=== PATIENT | female | born 1980 | race Caucasian/White ===

== ENCOUNTER → 2021-06-26 | Outpatient (CLI) | payer OTHER ==
[~2021-06-26] MED LIST: ACET-685 PO; ACET-687 PO; ALPR2TAB2 PO; BUTA1CAP30 PO; BUTA1CAP61 PO; DIAZ5TAB PO; DIVA500T2 PO; DOCU100C28 PO; FERR325T15 PO; FLUO40CA2 PO; FLUO40CA9 PO; METO10TA PO; NO HOME MEDS; PROC10TA2 PO; PROM25TA10 PO; SENN8.6T22 PO; TRAZ-163 PO; VENL150C PO; ZOLP10TA5 PO
[2021-06-26 17:02] LABS: EOSINOPHIL % 1.5 % (0.0-5.0); LYMPHOCYTES # 1.35 10^3/uL1 (1.0-4.8); LYMPHOCYTES % 66.5 % (24.0-44.0); MEAN CORP HGB 27.3 pg (26-34); MONOCYTES # 0.4 10^3/uL (0.3-0.8); MONOCYTES % 17.7 % (5.0-12.0); NEUTROPHIL # 0.3 10^3/uL (1.8-7.7); NEUTROPHILS % 13.3 % (41.0-85.0); PLATELET COUNT 240 10^3/uL (150-400); RED CELL DISTRIBUTION WIDTH 14.4 % (11.5-14.5)
[2021-06-26 17:31] LABS: CALCIUM 9.2 mg/dL (8.4-10.5); CARBON DIOXIDE 29.8 mmol/L (20.0-32)
[2021-06-28 06:18] LABS: HEP A AB, IgM Negative (Negative)
== END | disposition home or self-care (01) ==
LOC: LAB 16:36
PROVIDERS: ATTEND Internal Medicine
DX: M19.90 Unspecified osteoarthritis, unspecified site (principal); R20.8 Other disturbances of skin sensation; I73.00 Raynaud's syndrome without gangrene; G40.909 Epilepsy, unspecified, not intractable, without status epilepticus; D72.819 Decreased white blood cell count, unspecified; Z79.899 Other long term (current) drug therapy; M54.2 Cervicalgia
CPT/HCPCS: 36415; 80053; 80061; 80307; 82306; 82607; 82746; 83036; 84425; 84439; 84443; 85025; 85651; 86431

== ENCOUNTER 2021-09-07 22:16 | Emergency (ER) | payer OTHER ==
[~2021-09-07] VITALS: Ht 167.6 cm; Wt 52.4 kg
[2021-09-07 22:43] VITALS: BP 135/96
[2021-09-07 23:11] LABS: EOSINOPHIL % 0.5 % (0.0-5.0); LYMPHOCYTES # 0.88 10^3/uL1 (1.0-4.8); LYMPHOCYTES % 46.1 % (24.0-44.0); MEAN CORP HGB 27.9 pg (26-34); MONOCYTES # 0.6 10^3/uL (0.3-0.8); MONOCYTES % 31.9 % (5.0-12.0); NEUTROPHIL # 0.4 10^3/uL (1.8-7.7); NEUTROPHILS % 20.5 % (41.0-85.0); PLATELET COUNT 429 10^3/uL (150-400); RED CELL DISTRIBUTION WIDTH 15.6 % (11.5-14.5)
[2021-09-07 23:36] LABS: CARBON DIOXIDE 25.1 mmol/L (20.0-32)
--- NOTE | 2021-09-07 23:42 | DIREP ---
PROCEDURE:CHEST 1 VIEW COMPARISON:[facility], CR, XRAY CHEST SINGLE VW, 02/28/2021, 09:26 PM. INDICATIONS:SOB FINDINGS: LUNGS/PLEURA:There is pulmonary hyperinflation consistent with underlying COPD. No focal consolidation. No effusions. VASCULATURE:Mildly increased pulmonary vasculature. CARDIAC:Normal. No cardiac silhouette abnormality or cardiomegaly. MEDIASTINUM:Normal. No visible mass or adenopathy. BONES:Normal. No fracture or visible bony lesion. OTHER:Negative. CONCLUSION:Mild vascular congestion. No acute airspace disease Dictated by: Maynor Garcia DO on 09/07/2021 at 11:40 PM
--- NOTE | 2021-09-07 23:57 | ER.PDOC ---
General Chief Complaint: Requesting Medical Care Stated Complaint: POSS COVID Time seen by MD: 22:50 Source: patient Exam Limitations: no limitations History of Present Illness Initial Comments Cough, congestion shortness of breath for 2 days. Patient was exposed to someone with COVID-19 and she is worried that she has Covid. She also told me that she has been taking methamphetamine. Timing/Duration: gradual Severity: mild Associated Symptoms: runny nose, cough, mild SOB Allergies: Coded Allergies: hydromorphone (Unverified Allergy, Intermediate, HALLUCINATIONS, 06/02/17) ondansetron (Verified Allergy, Mild, 06/02/17) ketorolac (Unverified Allergy, Unknown, HALLUCINATIONS, 06/02/17) tramadol (Verified Adverse Reaction, Intermediate, Nausea, 06/02/17) Home Meds Reported Medications Butalbit/Acetamin/Caff/Codeine (Fioricet-Cod 44-802-19-30 Cap) 1 Each Capsule, 1 EACH PO PRN PRN for HEADACHE, CAPSULE 12/22/16 Acetaminophen With Codeine (TYLENOL WITH CODEINE #4 TABLET) 1 Each Tablet, 1 TAB PO Q4HR PRN for HEADACHE, #120 TAB 05/01/16 Fluoxetine Hcl (PROZAC) 40 Mg Capsule, 80 MG PO DAILY, CAPSULE 11/27/15 Promethazine Hcl (PROMETHAZINE HCL) 25 Mg Tablet, 25 MG PO Q6HR PRN for N/V, TABLET 11/11/14 Constitutional: no symptoms reported EENTM: see HPI Respiratory: see HPI Cardiovascular: no symptoms reported Gastrointestinal: no symptoms reported All Other Systems: Reviewed and Negative Past Medical History Medical History: CVA/TIA/stroke, coronary artery disease, COPD, hypertension, renal disease, other Surgical History: no surgical history Social History Alcohol Use: occassionally Drug Use: Meth Physical Exam General Appearance: alert, no distress Eye: eyes nml inspection Nose: nose nml Throat: pharynx nml, airway nml Neck: nml inspection, supple Respiratory: no resp.distress, breath sounds nml Abdomen: non-tender, no organomegaly CVS: reg rate & rhythm, heart sounds nml Skin: color nml, no rash, warm/dry Extremities: non-tender, nml ROM, no pedal edema NEURO/PSYCH: oriented x 3, CN's nml as tested, motor nml, sensation nml, mood/affect nml Results/Orders Results/Orders Orders - REESE SORIA MD Cbc With Auto Diff (09/07/21 22:51) Probnp B-Type Carpet Sewing Machine Operator (09/07/21 22:51) D-Dimer (09/07/21 22:51) Ekg-Routine (09/07/21 22:51) Troponin I High Sensitivity (09/07/21 22:51) Basic Metabolic Panel (09/07/21 22:51) Covid19 Antigen Yesica Jenni (09/07/21 22:51) Xr Chest 1v (09/07/21 22:51) Vital Signs Date Time Temp Pulse Resp B/P (MAP) Pulse Ox O2 Delivery O2 Flow Rate FiO2 09/07/21 22:43 98.7 129 32 09/07/21 22:43 98.7 129 32 97 09/07/21 22:43 98.7 129 32 97 Laboratory Tests Test 09/07/21 23:08 09/07/21 23:11 White Blood Count 1.9 10^3/uL (4.5-11.0) *L Red Blood Count 4.08 10^6/uL (4.00-5.20) Hemoglobin 11.4 g/dL (12.0-15.0) L Hematocrit 34.9 % (36.0-46.0) L Mean Corpuscular Volume 85.5 fL (78-100) Mean Corpuscular Hemoglobin 27.9 pg (26-34) Mean Corpuscular Hemoglobin Concent 32.7 g/dL (33-36.5) L Red Cell Distribution Width 15.6 % (11.5-14.5) H Platelet Count 429 10^3/uL (150-400) H Mean Platelet Volume 9.2 fL (7.8-11.0) Neutrophils (%) (Auto) 20.5 % (41.0-85.0) L Lymphocytes (%) (Auto) 46.1 % (24.0-44.0) H Monocytes (%) (Auto) 31.9 % (5.0-12.0) H Neutrophils # (Auto) 0.4 10^3/uL (1.8-7.7) L Lymphocytes # (Auto) 0.88 10^3/uL1 (1.0-4.8) L Monocytes # (Auto) 0.6 10^3/uL (0.3-0.8) Absolute Immature Granulocyte (auto 0 10^3 u/L (0-2) Absolute Eosinophils (auto) 0.0 10^3/uL (0.0-0.2) Immature Granulocytes % 0.00 % (0.00-0.50) Eosinophils % 0.5 % (0.0-5.0) Basophils % 1.0 % (0.0-0.2) H Basophils # 0.0 10^3/uL (0.0-0.1) D-Dimer 0.41 mg/L (0.19-0.49) Sodium Level 136 mmol/L (132-145) Potassium Level 3.3 mmol/L (3.6-5.2) L Chloride Level 104.0 mmol/L (96-109) Carbon Dioxide Level 25.1 mmol/L (20.0-32) Glucose Level 101 mg/dL (70-110) Blood Urea Nitrogen 13 mg/dL (7-18) Creatinine 0.85 mg/dL (0.59-1.40) Calcium Level 8.9 mg/dL (8.4-10.5) Anion Gap 10.2 Estimated GFR () 89.6 (>/=60) Est GFR (CKD-EPI)(Non-Afr Italian) 74.1 (>/=60) BUN/Creatinine Ratio 15.0 Troponin I High Sensitivity 34 ng/L (0-50) Pro-B-Type Natriuretic Peptide 440 pg/mL (0-125) H SARS-CoV-2 Antigen (Rapid) NEGATIVE (NEGATIVE) Progress Progress CXR: Mild vascular congestion. No acute airspace disease COVID-19 is negative. D-dimer is 0.41. BNP is 440. Chemistry show a potassium of 3.3 and rest of basic chemistry is normal. WBC is 1.9 and this is chronic. She sees a [employer] systems administrator for it. COVID-19 is negative. Patient is stable and she is ready to go home. EKG/XRAY/CT/US EKG: NSR EKG Comments: HR 100, LVH XRAY: chest ER DEPART Departure Time of Disposition: 23:56 Disposition: 01 HOME / SELF CARE / HOMELESS Impression: Primary Impression: Acute respiratory infection Condition: Stable Referrals: JETT VEGA (PCP) PRIMARY CARE PROVIDER Additional Instructions: Mucinex DM [id number] as directed Follow-up with your PCP in 1 week Return to ED if worsening symptoms or concerns Duration or Time Spent with Pa: 30 min REESE SORIA MD Sep 07, 2021 23:57
[2021-09-08 00:02] VITALS: BP 122/72
--- NOTE | 2021-09-08 01:29 | PCM.EKG ---
[facility] Test Date: 2021-09-07 Test Time: 23:50:45 Pat Name: LAURA MCCRAY Department: Room: Gender: F Lidar Technician: PAULO : 1980 Requested By: REESE SORIA Order Number: [id number] Reading MD: Reese SORIA Measurements Intervals [place] Rate: 100 P: 30 TN: 124 QRS: 50 QRSD: 87 T: -4 QT: 359 QTc: 463 Interpretive Statements Sinus tachycardia Consider left ventricular hypertrophy Compared to ECG 02/28/2021 21:38:01 Sinus bradycardia no longer present Electronically Signed On 09-10-2021 20:11:29 MORTGAGE LOAN PROCESSING CLERK by Reese SORIA Please click the below link to view image of tracing.
[2021-09-08 02:10] LABS: BAND NEUTROPHILS 2 % (2-6); SEGMENTED NEUTROPHILS 22 % (31-76)
[2021-09-08 02:11] LABS: LYMPHOCYTE 57 % (25-36); MONOCYTE 19 % (3-9)
== END 2021-09-08 00:02 | disposition home or self-care (01) ==
LOC: EDBD 22:16 → EDUNIT# 22:16 → ER 22:16
DX: J06.9 Acute upper respiratory infection, unspecified (principal); I10 Essential (primary) hypertension; I25.10 Atherosclerotic heart disease of native coronary artery without angina pectoris; J44.9 Chronic obstructive pulmonary disease, unspecified; Z20.822 Contact with and (suspected) exposure to COVID-19; Z79.899 Other long term (current) drug therapy; Z86.73 Personal history of transient ischemic attack (TIA), and cerebral infarction without residual deficits; Z88.5 Allergy status to narcotic agent; Z88.8 Allergy status to other drugs, medicaments and biological substances
CPT/HCPCS: 36415; 71045; 80048; 83880; 84484; 85025; 85379; 87426; 93005; 99285

== ENCOUNTER 2021-09-28 13:52 | Emergency (ER) | payer OTHER ==
[~2021-09-28] VITALS: Ht 170.2 cm; Wt 56.7 kg
--- NOTE | 2021-09-28 18:38 | NUR ---
Called pt for triage, they have left the hospital. Notified to notify admission if they come back.
--- NOTE | 2021-09-28 19:32 | NUR ---
Called pt a second time, no answer.
[2021-09-28 20:05] VITALS: BP 132/88
[2021-09-28 20:07] LABS: BASOPHIL # 0.1 10^3/uL (0.0-0.1); BASOPHIL % 2.4 % (0.0-0.2); EOSINOPHIL # 0.3 10^3/uL (0.0-0.2); EOSINOPHIL % 9.1 % (0.0-5.0); LYMPHOCYTES # 1.64 10^3/uL1 (1.0-4.8); LYMPHOCYTES % 55.2 % (24.0-44.0); MEAN CORP HGB 27.9 pg (26-34); MONOCYTES # 0.6 10^3/uL (0.3-0.8); MONOCYTES % 21.2 % (5.0-12.0); NEUTROPHIL # 0.4 10^3/uL (1.8-7.7); NEUTROPHILS % 12.1 % (41.0-85.0); PLATELET COUNT 409 10^3/uL (150-400); RED CELL DISTRIBUTION WIDTH 15.3 % (11.5-14.5)
[2021-09-28 20:20] LABS: CARBON DIOXIDE 26.7 mmol/L (20.0-32)
[2021-09-28] MEDS ORDERED: ZOFRAN ODT SL STA (20:22)
[2021-09-28] MEDS ORDERED: NORCO 7.5MG PO STA (20:26)
--- NOTE | 2021-09-28 20:52 | ER.PDOC ---
General Chief Complaint: Skin Rash/Abscess Stated Complaint: LT SIDE ABCESS UNDERARM/WEAKNESS Time seen by MD: 19:11 Source: patient Exam Limitations: no limitations History of Present Illness Initial Comments pt has a history of breast abscess and is here today with a possible abscess that has been draining for 4 days. She said this has happened before in the past and clindamycin has helped Timing/Duration: 1 week Severity: moderate Location: (L) axillary Quality: painful Identified Cause: no When: been going on for 4 days Where: left breast Allergies: Coded Allergies: hydromorphone (Unverified Allergy, Intermediate, HALLUCINATIONS, 06/02/17) ondansetron (Verified Allergy, Mild, 06/02/17) ketorolac (Unverified Allergy, Unknown, HALLUCINATIONS, 06/02/17) tramadol (Verified Adverse Reaction, Intermediate, Nausea, 06/02/17) Home Meds Reported Medications Butalbit/Acetamin/Caff/Codeine (Fioricet-Cod 07-269-48-30 Cap) 1 Each Capsule, 1 EACH PO PRN PRN for HEADACHE, CAPSULE 12/22/16 Acetaminophen With Codeine (TYLENOL WITH CODEINE #4 TABLET) 1 Each Tablet, 1 TAB PO Q4HR PRN for HEADACHE, #120 TAB 05/01/16 Fluoxetine Hcl (PROZAC) 40 Mg Capsule, 80 MG PO DAILY, CAPSULE 11/27/15 Promethazine Hcl (PROMETHAZINE HCL) 25 Mg Tablet, 25 MG PO Q6HR PRN for N/V, TABLET 11/11/14 Past Medical History Medical History: renal disease Surgical History: tubal Social History Alcohol Use: none Drug Use: none Reviewed Nursing Reviewed: Vital Signs, Abn. Noted, Nursing Assessment Constitutional: no symptoms reported EENTM: no symptoms reported Respiratory: no symptoms reported Cardiovascular: no symptoms reported Gastrointestinal: no symptoms reported Genitourinary: no symptoms reported Musculoskeletal: no symptoms reported Skin: no symptoms reported Psychiatric/Neurological: no symptoms reported Hematologic/Lymphatic: no symptoms reported Physical Exam General Appearance: alert Skin: warm/dry, abscess, other (left breast slightly erythematous at the 3' clock angle and draining) Location: other (breast) With: tenderness Extremities: non-tender EENT: eyes nml inspection Neck: trachea midline Respiratory: no resp. distress CVS: reg. rate & rhythm NEURO/PSYCH: oriented x 3 Comments insole coverer Benito Salcido Results/Orders Results/Orders Orders - EBONY CORTEZ MD Cbc With Auto Diff (09/28/21 19:48) C-Reactive Protein (09/28/21 19:48) Erythrocyte Sedimentation Rate (09/28/21 19:48) Procalcitonin (09/28/21 19:48) Basic Metabolic Panel (09/28/21 19:48) Covid19 Antigen Yesica Jenni (09/28/21 20:22) Ondansetron (Zofran Odt) (09/28/21 20:22) Influenza A&B (09/28/21 20:23) Hydrocodone/Acetaminophen ([place] 7.5mg) (09/28/21 20:26) Promethazine Hcl (Phenergan) (09/28/21 21:05) Hydrocodone/Acetaminophen ([place] 7.5mg) (09/28/21 21:05) Promethazine Hcl (Phenergan) (09/28/21 21:07) Vital Signs Date Time Temp Pulse Resp B/P (MAP) Pulse Ox O2 Delivery O2 Flow Rate FiO2 09/28/21 20:05 98.4 109 16 09/28/21 20:05 98.4 109 16 97 09/28/21 20:05 98.4 109 16 132/88 (103) 97 Room Air Administered Medications Medications (Trade) Dose Ordered Sig/Asad Route PRN Reason Start Time Stop Time Status Last Admin Dose Admin Acetaminophen/ Hydrocodone Bitart (Bright[place] 7.5mg) 1 each OT STAT PO 09/28/21 20:26 09/28/21 20:27 DC 09/28/21 21:06 1 EACH Laboratory Tests Test 09/28/21 20:01 09/28/21 20:23 White Blood Count 3.0 10^3/uL (4.5-11.0) L Red Blood Count 4.23 10^6/uL (4.00-5.20) Hemoglobin 11.8 g/dL (12.0-15.0) L Hematocrit 36.4 % (36.0-46.0) Mean Corpuscular Volume 86.1 fL (78-100) Mean Corpuscular Hemoglobin 27.9 pg (26-34) Mean Corpuscular Hemoglobin Concent 32.4 g/dL (33-36.5) L Red Cell Distribution Width 15.3 % (11.5-14.5) H Platelet Count 409 10^3/uL (150-400) H Mean Platelet Volume 9.0 fL (7.8-11.0) Neutrophils (%) (Auto) 12.1 % (41.0-85.0) L Lymphocytes (%) (Auto) 55.2 % (24.0-44.0) H Monocytes (%) (Auto) 21.2 % (5.0-12.0) H Neutrophils # (Auto) 0.4 10^3/uL (1.8-7.7) L Lymphocytes # (Auto) 1.64 10^3/uL1 (1.0-4.8) Monocytes # (Auto) 0.6 10^3/uL (0.3-0.8) Absolute Immature Granulocyte (auto 0 10^3 u/L (0-2) Absolute Eosinophils (auto) 0.3 10^3/uL (0.0-0.2) H Immature Granulocytes % 0.00 % (0.00-0.50) Eosinophils % 9.1 % (0.0-5.0) H Basophils % 2.4 % (0.0-0.2) H Basophils # 0.1 10^3/uL (0.0-0.1) Erythrocyte Sedimentation Rate 12 mm/hr (0-20) Sodium Level 140 mmol/L (132-145) Potassium Level 3.4 mmol/L (3.6-5.2) L Chloride Level 104.0 mmol/L (96-109) Carbon Dioxide Level 26.7 mmol/L (20.0-32) Glucose Level 73 mg/dL (70-110) Blood Urea Nitrogen 12 mg/dL (7-18) Creatinine 0.85 mg/dL (0.59-1.40) Calcium Level 8.7 mg/dL (8.4-10.5) Anion Gap 12.7 Estimated GFR () 89.6 (>/=60) Est GFR (CKD-EPI)(Non-Afr Latvian) 74.1 (>/=60) BUN/Creatinine Ratio 14.0 C-Reactive Protein 0.19 mg/dL (0.00-5.00) Procalcitonin < 0.05 ng/mL (0.05-0.5) L Influenza Type A Antigen NEGATIVE (NEG) Influenza Type B Antigen NEGATIVE (NEG) SARS-CoV-2 Antigen (Rapid) NEGATIVE (NEGATIVE) ER DEPART Departure Time of Disposition: 21:09 Disposition: 01 HOME / SELF CARE / HOMELESS Impression: Primary Impression: Breast abscess of female Condition: Stable Patient Instructions: Abscess, Care After, Abscess, Acre-it-[id number] Referrals: JETT VEGA (PCP) PRIMARY CARE PROVIDER Duration or Time Spent with Pa: 19 EBONY CORTEZ MD Sep 28, 2021 20:52
--- NOTE | 2021-09-28 21:04 | NUR ---
COVID RESULTS NEGATIVE, EDP NOTIFIED
[2021-09-28] MEDS ORDERED: PHENERGAN ONE (21:05)
[2021-09-28] MEDS ORDERED: NORCO 7.5MG PO ONE (21:05)
[2021-09-28] MEDS ORDERED: PHENERGAN PO STA (21:07)
[2021-09-28 23:28] LABS: EOSINOPHIL 12 % (1-4); LYMPHOCYTE 66 % (25-36); MONOCYTE 8 % (3-9); SEGMENTED NEUTROPHILS 14 % (31-76)
== END 2021-09-28 21:18 | disposition home or self-care (01) ==
LOC: ER 13:52
DX: N61.1 Abscess of the breast and nipple (principal); Z20.822 Contact with and (suspected) exposure to COVID-19; Z79.899 Other long term (current) drug therapy; Z88.5 Allergy status to narcotic agent; Z88.8 Allergy status to other drugs, medicaments and biological substances
CPT/HCPCS: 36415; 80048; 84145; 85025; 85651; 86140; 87426; 87804; 99283

== ENCOUNTER 2021-10-26 23:23 | Emergency (ER) | payer BC, OTHER | END 2021-10-27 00:20 | disposition left against medical advice (07) | LOC: ER 23:23 | DX: R51.9 Headache, unspecified (principal); Z53.21 Procedure and treatment not carried out due to patient leaving prior to being seen by health care provider ==

== ENCOUNTER 2021-12-06 14:37 | Emergency (ER) | payer BC, OTHER ==
[~2021-12-06] VITALS: Ht 165.1 cm; Wt 40.8 kg
[~2021-12-06 14:37] MED LIST changes: -VENL150C PO; +VENL150C3 PO
[2021-12-06] MEDS ORDERED: ATIVAN ONE (14:42)
[2021-12-06] MEDS ORDERED: ATIVAN IV STA (14:46)
[2021-12-06 15:08] VITALS: BP_SYST 119; BP_SYST 128; BP_DIAS 82; BP_DIAS 92
[2021-12-06 15:12] LABS: BASOPHIL % 0.6 % (0.0-0.2); EOSINOPHIL % 0.2 % (0.0-5.0); LYMPHOCYTES # 0.93 10^3/uL1 (1.0-4.8); LYMPHOCYTES % 15.1 % (24.0-44.0); MEAN CORP HGB 27.9 pg (26-34); MONOCYTES # 0.5 10^3/uL (0.3-0.8); MONOCYTES % 8.6 % (5.0-12.0); NEUTROPHIL # 4.6 10^3/uL (1.8-7.7); NEUTROPHILS % 75.2 % (41.0-85.0); PLATELET COUNT 342 10^3/uL (150-400); RED CELL DISTRIBUTION WIDTH 14.4 % (11.5-14.5)
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
[2021-12-06 15:36] LABS: CARBON DIOXIDE 20.2 mmol/L (20.0-32); GLUCOSE 185 mg/dL (70-110)
--- NOTE | 2021-12-06 16:15 | NUR ---
Remains alert and cooopertive. 1:1 status. Oral temp 97.5
--- NOTE | 2021-12-06 16:36 | NUR ---
Handoff to Michelle Salcido LVN
[2021-12-06] MEDS ORDERED: NS 1000ML 1,000 ML IV ONE ×2 (17:00)
--- NOTE | 2021-12-06 17:20 | PCM.EKG ---
[facility] Test Date: 2021-12-06 Test Time: 17:17:57 Pat Name: LAURA MCCRAY Department: Room: Gender: F Customer Management Specialist: BLAKE : 1980 Requested By: CRISTO BURLESON Order Number: [id number] Reading MD: Measurements Intervals [place] Rate: 126 P: 69 IN: 132 QRS: 48 QRSD: 85 T: 13 QT: 335 QTc: 486 Interpretive Statements Sinus tachycardia Anteroseptal infarct, old Compared to ECG 09/07/2021 23:50:45 Myocardial infarct finding now present Please click the below link to view image of tracing.
--- NOTE | 2021-12-06 17:21 | DIREP ---
PROCEDURE:CHEST 1 VIEW COMPARISON:[facility], CR, XRAY CHEST SINGLE VW, 09/07/2021, 11:15 PM. INDICATIONS:upper back pain after fall FINDINGS: LUNGS/PLEURA:Senescent changes or underlying chronic lung disease is fairly similar to the previous study. No confluent airspace consolidation, pleural effusion or pneumothorax is identified. VASCULATURE:Normal. Unremarkable pulmonary vasculature. CARDIAC:Normal. No cardiac silhouette abnormality or cardiomegaly. MEDIASTINUM:Normal. No visible mass or adenopathy. BONES:Dextro convex curvature of the thoracic spine with associated degenerative changes. OTHER:Negative. CONCLUSION: 1. Senescent changes versus potential underlying chronic lung disease. No acute cardiopulmonary abnormality. 2. 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 Dictated by: Seb Schilling M.D. On 12/06/2021 at 05:19 PM
[2021-12-06] MEDS ORDERED: TYLENOL PO STA (17:34)
--- NOTE | 2021-12-06 17:34 | NUR ---
STATUS PHYSICIAN AT BEDSIDE, PT ALERT AND ORIENTED X3, NO S/S OF DISTRESS NOTED. PT DENIES SUICIDAL IDEATIONS AND DENIES ANY INTENT ON HARMING HERSELF TODAY OR IN THE PAST MONTH. PT STATES, "I WANT TO GO TO REHAB I HAVE TO GO TO REHAB." PHYSICIAN STATES, "YOU HAVE ALREADY EATEN AND TALKED, YOU HAVE TO WALK AND THEN I WILL DISCHARGE YOU." PT GETTING DRESSED AT THIS TIME. PT GIVEN WRITTEN RESOURCES ON REHAB FACILITY.
[2021-12-06] MEDS ORDERED: TYLENOL PO ONE (17:36)
--- NOTE | 2021-12-06 17:46 | NUR ---
TEMP ORAL TEMP 98.3, NO S/S OF DISTRESS NOTED.
[2021-12-06 18:37] LABS: BILIRUBIN,URINE 1+ (NEGATIVE); UROBILINOGEN,URINE 0.2 E.U./dL (0.2)
[2021-12-06] MEDS ORDERED: ROCEPHIN 1,000 MG in NS 100ML 100 ML IV STA (18:56)
[2021-12-06 19:00] VITALS: BP 128/72
[2021-12-06] MEDS ORDERED: ROCEPHIN ONE (19:06)
[2021-12-06] MEDS ORDERED: NS 100ML 100 ML IV ONE (19:06)
== END 2021-12-06 19:07 | disposition home or self-care (01) ==
LOC: ER 14:37
DX: S01.01XA Laceration without foreign body of scalp, initial encounter (principal); N39.0 Urinary tract infection, site not specified; F15.20 Other stimulant dependence, uncomplicated; Z88.5 Allergy status to narcotic agent; Z79.899 Other long term (current) drug therapy; Z88.8 Allergy status to other drugs, medicaments and biological substances; X58.XXXA Exposure to other specified factors, initial encounter; Y93.02 Activity, running; Y92.488 Other paved roadways as the place of occurrence of the external cause; Y99.8 Other external cause status
CPT/HCPCS: 36415; 71045; 80053; 80061; 80299 ×2; 80307; 80324; 81001; 82077; 82140; 83036; 84443; 84484; 84703; 85025; 86592; 87086; 93005; 96361; 96374; 99285; A9150; G0480; J0696; J2060

== ENCOUNTER 2021-12-07 19:38 | Emergency (ER) | payer OTHER ==
[~2021-12-07] VITALS: Ht 170.2 cm; Wt 61.2 kg
[2021-12-07 19:48] VITALS: BP 120/41
[2021-12-07] MEDS ORDERED: TYLENOL #3 PO STA (19:54)
[2021-12-07] MEDS ORDERED: TYLENOL #3 PO ONE (19:57)
--- NOTE | 2021-12-07 20:05 | ER.PDOC ---
General Chief Complaint: Neck/Upper back Pain Stated Complaint: NECK/LEFT HAND PAIN Time seen by MD: 20:02 Source: patient Exam Limitations: no limitations History of Present Illness Initial Comments Neck and left hand pain since yesterday. Patient was seen here yesterday for methamphetamine abuse. She does not remember injury. No numbness, tingling or w eakness of upper extremities. Timing/Duration: yesterday Severity/Quality: moderate Associated Symptoms: denies symptoms Allergies: Coded Allergies: hydromorphone (Unverified Allergy, Intermediate, HALLUCINATIONS, 06/02/17) ondansetron (Verified Allergy, Mild, 06/02/17) ketorolac (Unverified Allergy, Unknown, HALLUCINATIONS, 06/02/17) tramadol (Verified Adverse Reaction, Intermediate, Nausea, 06/02/17) Home Meds Reported Medications Butalbit/Acetamin/Caff/Codeine (Fioricet-Cod 18-183-08-30 Cap) 1 Each Capsule, 1 EACH PO PRN PRN for HEADACHE, CAPSULE 12/22/16 Acetaminophen With Codeine (TYLENOL WITH CODEINE #4 TABLET) 1 Each Tablet, 1 TAB PO Q4HR PRN for HEADACHE, #120 TAB 05/01/16 Fluoxetine Hcl (PROZAC) 40 Mg Capsule, 80 MG PO DAILY, CAPSULE 11/27/15 Promethazine Hcl (PROMETHAZINE HCL) 25 Mg Tablet, 25 MG PO Q6HR PRN for N/V, TABLET 11/11/14 Past Medical History Medical History: renal disease, other (Lupus, Seizures) Surgical History: tubal Family History Significant Family History: no pertinent family hx Social History Alcohol Use: none Drug Use: Meth Review of Systems Constitutional: no symptoms reported EENTM: no symptoms reported Respiratory: no symptoms reported Cardiovascular: no symptoms reported Musculoskeletal: see HPI All Other Systems: Reviewed and Negative Physical Exam General Appearance: No Apparent Distress, WD/WN HEENT: PERRL/EOMI, Normal ENT Inspection, TMs Normal, Pharynx Normal Neck: Tenderness Cardiovascular/Respiratory: Regular Rate, Rhythm, No M/R/G, Normal Peripheral Pulses, No JVD, Normal Breath Sounds, No Respiratory Distress Gastrointestinal: Normal Bowel Sounds, No Organomegaly, No Pulsatile Mass, Non Tender, Soft Back: Normal Inspection, No CVA Tenderness, No Vertebral Tenderness Extremities: Tenderness (Left hand with ecchymosis on the posterior aspect.) Neuro/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: 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, 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, mood/effect nml, No Motor/Sensory Deficits, Relexes nml Skin: Normal Color, Warm/Dry Results/Orders Results/Orders Orders - REESE SORIA MD Ct Cervical Spine (12/07/21 20:01) Acetaminophen With Codeine (Tylenol #3) (12/07/21 19:54) Acetaminophen With Codeine (Tylenol #3) (12/07/21 19:57) Xr Hand Lt (12/07/21 20:01) Ct Chest W Iv Contrast (12/07/21 21:50) Cbc W/O Diff (12/07/21 21:50) Basic Metabolic Panel (12/07/21 21:50) 0.9 % Sodium Chloride (Ns 1000ml) (12/07/21 21:50) Covid19 Antigen Yesica Jenni (12/07/21 21:54) 0.9 % Sodium Chloride (Ns 1000ml) (12/07/21 22:07) Morphine Sulfate (Morphine Sulfate) (12/07/21 22:13) Ondansetron Hcl/Pf (Zofran) (12/07/21 22:14) Ondansetron Hcl/Pf (Zofran) (12/07/21 22:16) Morphine Sulfate (Morphine Sulfate) (12/07/21 22:33) Morphine Sulfate (Morphine Sulfate) (12/07/21 22:36) Morphine Sulfate (Morphine Sulfate) (12/07/21 22:40) Vital Signs Date Time Temp Pulse Resp B/P (MAP) Pulse Ox O2 Delivery O2 Flow Rate FiO2 12/08/21 00:50 98.6 58 16 112/66 (81) 99 Room Air 12/07/21 23:50 98.6 56 16 107/69 (82) 99 Room Air 12/07/21 22:50 98.6 52 16 96/56 (69) 98 Room Air 12/07/21 21:50 98.6 114 16 107/72 (84) 99 Room Air 12/07/21 20:50 98.6 65 16 131/83 (99) 100 Room Air 12/07/21 19:48 98.6 114 16 12/07/21 19:48 98.6 114 16 100 12/07/21 19:48 98.6 114 16 120/41 (67) 100 Room Air Administered Medications Medications (Trade) Dose Ordered Sig/Asad Route PRN Reason Start Time Stop Time Status Last Admin Dose Admin Acetaminophen/ Codeine Phosphate (Tylenol #3) 1 each STAT STAT PO 12/07/21 19:54 12/07/21 19:56 DC 12/07/21 20:00 1 EACH Morphine Sulfate (Morphine Sulfate) 4 mg STAT STAT IV 12/07/21 22:13 12/07/21 22:14 DC 12/07/21 22:42 4 MG Ondansetron HCl (Zofran) 4 mg STAT STAT IV 12/07/21 22:14 12/07/21 22:15 DC 12/07/21 22:36 4 MG Sodium Chloride 1,000 ml @ 1,000 mls/hr Q1H STAT IV 12/07/21 21:50 12/07/21 22:49 DC 12/07/21 22:11 1,000 MLS/HR Laboratory Tests Test 12/07/21 21:51 12/07/21 22:21 12/07/21 22:40 SARS-CoV-2 Antigen (Rapid) NEGATIVE (NEGATIVE) White Blood Count 1.4 10^3/uL (4.5-11.0) *L Red Blood Count 4.03 10^6/uL (4.00-5.20) Hemoglobin 11.4 g/dL (12.0-15.0) L Hematocrit 35.0 % (36.0-46.0) L Mean Corpuscular Volume 86.8 fL (78-100) Mean Corpuscular Hemoglobin 28.3 pg (26-34) Mean Corpuscular Hemoglobin Concent 32.6 g/dL (33-36.5) L Red Cell Distribution Width 14.5 % (11.5-14.5) Platelet Count 284 10^3/uL (150-400) Mean Platelet Volume 9.7 fL (7.8-11.0) Sodium Level 141 mmol/L (132-145) Potassium Level 3.5 mmol/L (3.6-5.2) L Chloride Level 105.0 mmol/L (96-109) Carbon Dioxide Level 22.8 mmol/L (20.0-32) Glucose Level 72 mg/dL (70-110) Blood Urea Nitrogen 15 mg/dL (7-18) Creatinine 0.84 mg/dL (0.59-1.40) Calcium Level 7.6 mg/dL (8.4-10.5) L Anion Gap 16.7 Estimated GFR () 90.9 (>/=60) Est GFR (CKD-EPI)(Non-Afr [place]ian) 75.1 (>/=60) BUN/Creatinine Ratio 17.0 Differential Total Cells Counted 100 #CELLS Segmented Neutrophils 12 % (31-76) L Lymphocytes 70 % (25-36) H Monocytes 18 % (3-9) H Platelet Estimate ADEQUATE Platelet Morphology NORMAL Progress Progress X-rays of left hand shows no acute abnormality. CT cervical spine shows No evidence of fracture. Note is made of pneumome diastinum. CT chest: Small volume of pneumomediastinum surrounding the esophagus and trachea, which tracks cephalad through the thoracic inlet into the lower neck. No mediastinal hematoma. No fluid/edema is seen within the mediastinum adjacent to the trachea or esophagus to suggest esophageal injury. This may be idiopathic or related to forced expiration/Valsalva maneuver. 2. Minimal dependent atelectasis in the posterior lower lobes. The lungs are otherwise clear. No pneumothorax. Spoke with Dr. Ann who recommended patient be transferred to [place]. She received Tylenol #3 and morphine here. ER DEPART Departure Time of Disposition: 01:31 Disposition: 02 SHORT TERM HOSPITAL Impression: Primary Impression: Pneumomediastinum Additional Impressions: Neck pain Hand pain, left Neutropenia Condition: Stable Referrals: LARS WHITTINGTON MD (PCP) PRIMARY CARE PROVIDER Comments Transfer to [facility] ED for Dr. Calero Duration or Time Spent with Pa: 30 min Problem Qualifiers Additional Impressions: Neutropenia Neutropenia type: unspecified Qualified Codes: D70.9 - Neutropenia, unspecified REESE SORIA MD Dec 07, 2021 20:05
--- NOTE | 2021-12-07 20:49 | DIREP ---
PROCEDURE:XRAY HAND MIN 3 VW-LT COMPARISON:None. INDICATIONS:pain/injury FINDINGS:AP, lateral, and oblique view. BONES:Normal. JOINTS:Normal. SOFT TISSUES:Trace dorsal hand soft tissue swelling.. OTHER:No additional findings. CONCLUSION:No acute visible fracture. See above description. Dictated by: Sina Willams MD on 12/07/2021 at 08:47 PM
[2021-12-07 20:50] VITALS: BP 131/83
--- NOTE | 2021-12-07 21:45 | DIREP ---
PROCEDURE: CT SPINE CERVICAL W/O COMPARISON:[facility], CR, XRAY HAND MIN 3 VW-LT, 12/07/2021, 08:09 PM. [facility], CR, XRAY CHEST SINGLE VW, 12/06/2021, 05:04 PM. INDICATIONS:pain FINDINGS: ALIGNMENT:Normal. VERTEBRAE:Normal. PARASPINAL AREA:Normal. OTHER:Pneumomediastinum. Patient is edentulous. CERVICAL DISC LEVELS C2-C3:Normal. C3-C4:Normal. C4-C5:Normal. C5-C6:Normal. C6-C7:Normal. C7-T1:Normal. CONCLUSION: 1. No evidence of fracture. Note is made of pneumomediastinum. 2. This report was called by telephone at 9:40 pm on December 07, 2021 to Abraham Zavala Mba Dictated by: Sina Willams MD on 12/07/2021 at 09:35 PM
[2021-12-07 21:50] VITALS: BP 107/72
[2021-12-07] MEDS ORDERED: NS 1000ML 1,000 ML IV STA (21:50)
[2021-12-07] MEDS ORDERED: NS 1000ML 1,000 ML ONE (22:07)
[2021-12-07] MEDS ORDERED: MORPHINE SULFATE IV STA (22:13)
[2021-12-07] MEDS ORDERED: ZOFRAN IV STA (22:14)
[2021-12-07] MEDS ORDERED: ZOFRAN ONE (22:16)
--- NOTE | 2021-12-07 22:24 | NUR ---
COVID NEGATIVE, EDP NOTIFIED.
[2021-12-07 22:31] LABS: MEAN CORP HGB 28.3 pg (26-34); RED CELL DISTRIBUTION WIDTH 14.5 % (11.5-14.5)
[2021-12-07] MEDS ORDERED: MORPHINE SULFATE ONE ×2 (22:33→22:40)
[2021-12-07] MEDS ORDERED: MORPHINE SULFATE IV ONE (22:36)
[2021-12-07 22:38] LABS: CARBON DIOXIDE 22.8 mmol/L (20.0-32)
[2021-12-07 22:50] VITALS: BP 96/56
[2021-12-07 23:46] LABS: LYMPHOCYTE 70 % (25-36); MONOCYTE 18 % (3-9); SEGMENTED NEUTROPHILS 12 % (31-76)
[2021-12-07 23:50] VITALS: BP 107/69
[2021-12-08 00:50] VITALS: BP 112/66
--- NOTE | 2021-12-08 01:14 | DIREP ---
PROCEDURE:CT CHEST WITH CONTRAST COMPARISON:[facility], CT, CT ABD/PELVIS W/ CONTRAST, 07/04/2017, 10:46 PM. [facility], CR, XRAY CHEST SINGLE VW, 12/06/2021, 05:04 PM. [facility], CR, XRAY HAND MIN 3 VW-LT, 12/07/2021, 08:09 PM. [facility], CT, CT SPINE CERVICAL W/O, 12/07/2021, 08:46 PM. INDICATIONS:Pneumomediastinum on CT C spine TECHNIQUE:Helical CT images of the chest were obtained following the administration of IV contrast material. Axial, sagittal, and coronal images are provided. FINDINGS: LUNGS/PLEURA: Minimal dependent atelectasis in the posterior/inferior aspects of the bilateral lower lobes. The lungs are otherwise clear. No focal consolidation or suspicious pulmonary nodule. No pleural effusion or pneumothorax. MEDIASTINUM/YESSI: Small volume of pneumomediastinum surrounding the esophagus and trachea and tracking cephalad through the thoracic inlet into the lower neck. No fluid or edema is seen within the mediastinum or surrounding the thoracic esophagus. No enlarged mediastinal or hilar lymph nodes. No mediastinal hematoma. CARDIAC: Heart size is normal. No pericardial effusion. No visible coronary artery calcification. THORACIC AORTA: Normal. No significant atherosclerotic plaque. No aneurysm or dissection. CHEST WALL: Unremarkable. No significant chest wall contusion. LIMITED ABDOMEN: 6.2 cm simple cyst in the inferomedial right hepatic lobe. Additional smaller cysts are seen within the right hepatic dome and medial segment of left hepatic lobe. No suspicious hepatic lesion. Otherwise unremarkable. BONES: Normal. No acute abnormality or suspicious osseous lesion. OTHER: Negative. CONCLUSION: 1. Small volume of pneumomediastinum surrounding the esophagus and trachea, which tracks cephalad through the thoracic inlet into the lower neck. No mediastinal hematoma. No fluid/edema is seen within the mediastinum adjacent to the trachea or esophagus to suggest esophageal injury. This may be idiopathic or related to forced expiration/Valsalva maneuver. 2. Minimal dependent atelectasis in the posterior lower lobes. The lungs are otherwise clear. No pneumothorax. 3. Additional findings, as above. Dictated by: Seb Castanon MD on 12/08/2021 at 01:04 AM
[2021-12-08 01:43] VITALS: BP 103/64
== END 2021-12-08 01:45 | disposition short-term general hospital (02) ==
LOC: ER 19:38 → EDBD 19:38 → ER 12-08 01:45
DX: J98.2 Interstitial emphysema (principal); D70.9 Neutropenia, unspecified; M54.2 Cervicalgia; M79.642 Pain in left hand; Z88.5 Allergy status to narcotic agent; Z88.8 Allergy status to other drugs, medicaments and biological substances; N28.9 Disorder of kidney and ureter, unspecified; F15.10 Other stimulant abuse, uncomplicated; Z20.822 Contact with and (suspected) exposure to COVID-19
CPT/HCPCS: 36415; 71260; 72125; 73130; 80048; 85027; 87426; 96361; 96374; 96375; 99285; J2270; J2405; J3490; J7030; Q9965

== ENCOUNTER 2022-03-15 19:49 | Emergency (ER) | payer SELFPAY ==
[~2022-03-15] VITALS: Ht 170.2 cm; Wt 61.2 kg
[2022-03-15 20:03] VITALS: BP 119/79
[2022-03-15] MEDS ORDERED: PHENERGAN IM STA (20:13)
[2022-03-15] MEDS ORDERED: STADOL IM STA (20:13)
--- NOTE | 2022-03-15 20:19 | ER.PDOC ---
General Chief Complaint: Headache Stated Complaint: MIGRANE Time seen by MD: 20:15 Source: patient Exam Limitations: no limitations History of Present Illness Initial Comments Migraine headache for 2 days. She has been seen recurrently in the emergency room for the same complaint. Headache is similar to previous ones and home remedies have not made her to feel better. Severity/Quality: moderate, constant Associated Symptoms: nausea/vomiting, sensitivity to light Allergies: Coded Allergies: hydromorphone (Unverified Allergy, Intermediate, HALLUCINATIONS, 06/02/17) ketorolac (Unverified Allergy, Unknown, HALLUCINATIONS, 06/02/17) tramadol (Verified Adverse Reaction, Intermediate, Nausea, 06/02/17) Home Meds Reported Medications Butalbit/Acetamin/Caff/Codeine (Fioricet-Cod [id number] Cap) 1 Each Capsule, 1 EACH PO PRN PRN for HEADACHE, CAPSULE 12/22/16 Acetaminophen With Codeine (TYLENOL WITH CODEINE #4 TABLET) 1 Each Tablet, 1 TAB PO Q4HR PRN for HEADACHE, #120 TAB 05/01/16 Fluoxetine Hcl (PROZAC) 40 Mg Capsule, 80 MG PO DAILY, CAPSULE 11/27/15 Promethazine Hcl (PROMETHAZINE HCL) 25 Mg Tablet, 25 MG PO Q6HR PRN for N/V, TABLET 11/11/14 Past Medical History Medical History: renal disease, other Surgical History: tubal Social History Alcohol Use: none Drug Use: none Review of Systems Constitutional: no symptoms reported Eyes: see HPI Respiratory: no symptoms reported Cardiovascular: no symptoms reported Gastrointestinal: see HPI All Other Systems: Reviewed and Negative Physical Exam General Appearance: No Apparent Distress, WD/WN Head/Eyes: eyes nml inspection, no facial swelling, no nystagmus, PERRL Neck: nml inspection, Supple Cardiovascular: Normal Peripheral Pulses, Regular Rate, Rhythm, No Edema, No Gallop, No JVD, No Murmur Respiratory: chest non-tender, lungs clear, normal breath sounds, no respiratory distress, no accessory muscle use Gastrointestinal: Normal Bowel Sounds, No Organomegaly, No Pulsatile Mass, Non Tender, Soft Back: Normal Inspection, No CVA Tenderness, No Vertebral Tenderness Extremities: Normal Range of Motion, Non-Tender, Normal Inspection, No Pedal Edema, No Calf Tenderness, Normal Capillary Refill Psychiatric: Alert, Oriented x 3 Cranial Nerves: Normal Hearing, Normal Speech, PERRL Motor/Sensory: No Motor Deficit, No Sensory Deficit, No Pronator Drift, Negative Babinski's Sign Skin: Warm/Dry, Normal Color Lymphatic: No Adenopathy Results/Orders Results/Orders Orders - REESE SORIA MD Butorphanol Tartrate (Stadol) (03/15/22 20:13) Promethazine Hcl (Phenergan) (03/15/22 20:13) Vital Signs Date Time Temp Pulse Resp B/P (MAP) Pulse Ox O2 Delivery O2 Flow Rate FiO2 03/15/22 20:03 97.9 107 16 119/79 (92) 97 Room Air* 0 21 03/15/22 20:03 97.9 107 16 03/15/22 20:03 97.9 107 16 97 Progress Progress Patient received Stadol and Phenergan with improvement in her headache. ER DEPART Departure Time of Disposition: 20:18 Disposition: 01 HOME / SELF CARE / HOMELESS Impression: Primary Impression: Migraine headache Condition: Improved Referrals: PCP,UNKNOWN (PCP) PRIMARY CARE PROVIDER Additional Instructions: Follow-up with your PCP 1 to 2 days Return to ED if worsening or concerns Duration or Time Spent with Pa: 10 min Problem Qualifiers Primary Impression: Migraine headache Migraine type: unspecified Status migrainosus presence: with status migrainosus Intractability: intractable Qualified Codes: G43.911 - Migraine, unspecified, intractable, with status migrainosus REESE SORIA MD Mar 15, 2022 20:19
[2022-03-15] MEDS ORDERED: PHENERGAN ONE (20:20)
[2022-03-15] MEDS ORDERED: STADOL ONE (20:20)
[2022-03-15 20:31] VITALS: BP 119/77
== END 2022-03-15 20:40 | disposition home or self-care (01) ==
LOC: ER 19:49
DX: G43.911 Migraine, unspecified, intractable, with status migrainosus (principal); N28.9 Disorder of kidney and ureter, unspecified; Z88.5 Allergy status to narcotic agent; Z88.8 Allergy status to other drugs, medicaments and biological substances
CPT/HCPCS: 96372 ×2; 99284; J0595; J2550

== ENCOUNTER 2022-06-08 12:48 | Emergency (ER) | payer MEDICAID ==
[~2022-06-08] VITALS: Ht 167.6 cm; Wt 52.2 kg
--- NOTE | 2022-06-08 12:50 | NUR ---
40 y/o white female ARRIVED VIA ems TO ROOM 4 AWAKE ALERT perrla5 MM, USED METH YESTERDAY VIA SNORTING NOW NOMING OFF HIGH WANTS TO GET TO HER DAD IN [place] GET TO REHAB FOR DRUG USE. MONITORS APPLIED CR.REGIS AT BEDSIDE.
[2022-06-08 13:00] VITALS: BP 113/92
[2022-06-08] MEDS ORDERED: ATIVAN ONE ×2 (13:04→15:13)
[2022-06-08] MEDS: ATIVAN PO STA (13:14)
[2022-06-08 14:00] VITALS: BP 156/86
[2022-06-08] MEDS ORDERED: TORADOL ONE (15:12)
[2022-06-08] MEDS: ATIVAN IM STA (15:22)
[2022-06-08] MEDS: TORADOL IM STA (15:22)
--- NOTE | 2022-06-08 15:23 | NUR ---
Refused medications pt offered pain medicatiobn and ativan IM pt refused stated yhat she is a meth assict and will not take shots. then stated she is allergic to toradol unknown reaction. Dr. Gilman notified.
[2022-06-08 15:28] VITALS: BP 129/63
--- NOTE | 2022-06-08 15:28 | ER.PDOC ---
General Chief Complaint: Requesting Medical Care Stated Complaint: WEAKNESS TRAVEL OUT OF US: No Time seen by MD: 13:00 Source: patient, EMS Exam Limitations: intoxication History of Present Illness Initial Comments Patient is a 41-year-old female with past medical history of meth abuse who comes in via EMS for weakness and a bystander noticing altered mental status. EMS states that patient admits to recently snorting methamphetamines yesterday and is now having generalized weakness. Interviewing patient she is pretty tangential definitely under the influence of methamphetamines difficult to get a story from her however she is alert and oriented does know her name does know where she is at however just has some tangential and pressured speech.Definitely seems as though patient has a little bit of sympathomimetic storm going on if she does have dilated pupils with a pressured speech and some mild tachycardia. Allergies: Coded Allergies: hydromorphone (Verified Allergy, Mild, ITCHING, 06/08/22) ketorolac (Verified Allergy, Mild, 06/08/22) ondansetron (Verified Allergy, Mild, ITCHING, 06/08/22) tramadol (Verified Allergy, Mild, ITCHING, 06/08/22) Past Medical History Medical History: other Surgical History: no surgical history Family History Significant Family History: no pertinent family hx Social History Smoking: other (Patient would not answer) Alcohol Use: occassionally Drug Use: Meth Reviewed Nursing Reviewed: Vital Signs, Abn. Noted, Nursing Assessment Review of Systems Constitutional: other (Patient refused to answer most review of systems questionsJust repeated im weak i did meth) Physical Exam General Appearance: Anxious EENT: other (Dilated but normally reactive pupils) Neck: Non-Tender, Full Range of Motion Respiratory: chest non-tender, lungs clear, normal breath sounds CVS: no murmur, tachycardia Gastrointestinal: Normal Bowel Sounds, Non Tender Extremities: Normal Range of Motion, Non-Tender, Normal Inspection, No Calf Tenderness Neurologic/Psychiatric: No Motor/Sensory Deficits Skin: Normal Color Lymphatic: No Adenopathy Results/Orders Results/Orders Orders - ARELIS STACY MD Lorazepam (Ativan) (06/08/22 12:52) Lorazepam (Ativan) (06/08/22 13:04) Lorazepam (Ativan) (06/08/22 14:52) Ketorolac Tromethamine (Toradol) (06/08/22 14:52) Ketorolac Tromethamine (Toradol) (06/08/22 15:12) Lorazepam (Ativan) (06/08/22 15:13) Vital Signs Date Time Temp Pulse Resp B/P (MAP) Pulse Ox O2 Delivery O2 Flow Rate FiO2 06/08/22 14:00 98.3 88 20 156/86 (109) 93 Room Air* 0 21 06/08/22 13:00 98.3 88 20 06/08/22 13:00 98.3 88 20 93 06/08/22 13:00 98.3 88 20 113/92 (99) 93 Room Air* 0 21 Administered Medications Medications (Trade) Dose Ordered Sig/Asad Route PRN Reason Start Time Stop Time Status Last Admin Dose Admin Lorazepam (Ativan) 2 mg OT STAT PO 06/08/22 12:52 06/08/22 12:53 DC 06/08/22 13:14 2 MG Progress Progress Patient here under the influence of known meth thus because of this patient is sympathomimeticSurge thus will give Ativan no need for work-up as patient is clinically intoxicated we have a great reason for altered mental status we will continue to monitor patient if anything changes or she does not sober up an appropriate amount of time we will consider further work-up at that time. [id number] is beginning to refuse care including Ativan versus Toradol she states she has pain all over. Ultimately she says that she is allergic to that she will refuse any injection. Went to reassess patient she knows where she is if she knows what time it is she knows her name. She admits to using meth and she has good insight. Denies SI HI or AVH patient is appropri ate for discharge.Patient is still mildly tachycardic but it is under 110. ER DEPART Departure Time of Disposition: 15:27 Disposition: 01 HOME / SELF CARE / HOMELESS Impression: Primary Impression: Methamphetamine abuse Condition: Improved Patient Instructions: Methamphetamine Abuse, Complications Referrals: PCP,UNKNOWN (PCP) PRIMARY CARE PROVIDER Additional Instructions: Please stop using drugs. If you have any new persistent or worsening symptoms or concerns please seek medical attention. You should follow-up with your primary care provider within the next week. Duration or Time Spent with Pa: 40 ARELIS STACY MD Jun 08, 2022 15:28
== END 2022-06-08 15:31 | disposition home or self-care (01) ==
LOC: MERGE 12:48 → ER 12:48 → EDBD 12:48 → ER 15:31
DX: F15.10 Other stimulant abuse, uncomplicated (principal); F10.20 Alcohol dependence, uncomplicated; R00.0 Tachycardia, unspecified; Z88.5 Allergy status to narcotic agent; Z88.8 Allergy status to other drugs, medicaments and biological substances
CPT/HCPCS: 99283; J2060; J1885

== ENCOUNTER 2022-06-22 20:08 | Emergency (ER) | payer SELFPAY ==
[~2022-06-22] VITALS: Ht 170.2 cm; Wt 57.2 kg
[~2022-06-22 20:08] MED LIST changes: +LACTATED RINGERS ONE
[2022-06-22 20:28] VITALS: BP 120/81
[2022-06-22] MEDS ORDERED: LACTATED RINGERS 0 ML IV STA (20:32)
[2022-06-22] MEDS ORDERED: PHENERGAN IV STA (20:32)
--- NOTE | 2022-06-22 20:33 | ER.PDOC ---
General Chief Complaint: Requesting Medical Care Stated Complaint: RIGHT FLANK PAIN Time seen by MD: 20:27 Source: patient Exam Limitations: no limitations History of Present Illness Initial Comments 41 yo F indicates she has dysuria and R flank/lower back pain for 2 days, believes she has a UTI and perhaps a kidney stone, which she has had previously. passed. Having nausea; indicates she is entering rehab for methamphetamine abuse this Saturday. Timing/Duration: other (2 days) Severity/Quality: moderate Radiation: flank, back Associated Symptoms: back pain, nausea/vomiting Allergies: Coded Allergies: hydromorphone (Unverified Allergy, Intermediate, HALLUCINATIONS, 06/02/17) ondansetron (Verified Allergy, Mild, ITCHING, 06/11/22) ketorolac (Unverified Allergy, Unknown, HALLUCINATIONS, 06/02/17) tramadol (Verified Adverse Reaction, Intermediate, Nausea, 06/02/17) Home Meds Reported Medications Butalbit/Acetamin/Caff/Codeine (Fioricet-Cod 62-056-90-30 Cap) 1 Each Capsule, 1 EACH PO PRN PRN for HEADACHE, CAPSULE 12/22/16 Acetaminophen With Codeine (TYLENOL WITH CODEINE #4 TABLET) 1 Each Tablet, 1 TAB PO Q4HR PRN for HEADACHE, #120 TAB 05/01/16 Fluoxetine Hcl (PROZAC) 40 Mg Capsule, 80 MG PO DAILY, CAPSULE 11/27/15 Promethazine Hcl (PROMETHAZINE HCL) 25 Mg Tablet, 25 MG PO Q6HR PRN for N/V, TABLET 11/11/14 Vital Signs First Vital Signs Date Time Temp Pulse Resp B/P (MAP) Pulse Ox O2 Delivery O2 Flow Rate FiO2 06/22/22 20:28 98.3 100 16 99 06/22/22 20:28 120/81 (94) Room Air* 0 21 Last Vital Signs Date Time Temp Pulse Resp B/P (MAP) Pulse Ox O2 Delivery O2 Flow Rate FiO2 06/22/22 22:11 98.3 75 16 113/75 (88) 99 Room Air* 0 21 Past Medical History Medical History: renal disease (renal stones), other (methamphetamine abuse) Surgical History: tubal Family History Significant Family History: other (Fx stones) Social History Drug Use: Meth Reviewed Nursing Reviewed: Vital Signs, Abn. Noted, Nursing Assessment Constitutional: no symptoms reported EENTM: no symptoms reported Respiratory: no symptoms reported Cardiovascular: no symptoms reported Gastrointestinal: nausea Genitourinary: dysuria, flank pain Skin: no symptoms reported Psychiatric/Neurological: no symptoms reported Endocrine: no symptoms reported Hematologic/Lymphatic: no symptoms reported All Other Systems: Reviewed and Negative Physical Exam General Appearance: Mild Distress HEENT: Normal ENT Inspection (grossly wnl) Neck: Non-Tender Respiratory: lungs clear Cardiovascular: Regular Rate, Rhythm (tachycardic but regular) Gastrointestinal: Normal Bowel Sounds, Non Tender Back: Normal Inspection Extremities: Normal Range of Motion Neurologic/Psychiatric: Alert, Oriented x 3 Results/Orders Results/Orders Orders - NAYELI SULLIVAN MD Urinalysis (06/22/22 20:27) Basic Metabolic Panel (06/22/22 20:27) Saline Lock (06/22/22 20:27) Promethazine Hcl (Phenergan) (06/22/22 20:32) Ringer's Solution,Lactated (Lactated Rin (06/22/22 20:32) Urine Culture (06/22/22 20:18) Acetaminophen (Tylenol) (06/22/22 21:25) Acetaminophen (Tylenol) (06/22/22 21:30) Ct Abd/Pelvis Wo Iv Contrast (06/22/22 21:34) Liver Function Panel (06/22/22 22:18) Vital Signs Date Time Temp Pulse Resp B/P (MAP) Pulse Ox O2 Delivery O2 Flow Rate FiO2 06/22/22 22:11 98.3 75 16 113/75 (88) 99 Room Air* 0 21 06/22/22 20:28 98.3 100 16 120/81 (94) 99 Room Air* 0 21 06/22/22 20:28 98.3 100 16 06/22/22 20:28 98.3 100 16 99 Administered Medications Medications (Trade) Dose Ordered Sig/Asad Route PRN Reason Start Time Stop Time Status Last Admin Dose Admin Acetaminophen (Tylenol) 1,000 mg STAT STAT PO 06/22/22 21:25 06/22/22 21:26 DC 06/22/22 21:32 1,000 MG Promethazine HCl (Phenergan) 12.5 mg STAT STAT IV 06/22/22 20:32 06/22/22 20:33 UNV 06/22/22 21:04 12.5 MG Laboratory Tests Test 06/22/22 20:18 06/22/22 20:50 Urine Collection Type RANDOM Urine Color YELLOW Urine Appearance CLEAR Urine Bilirubin NEGATIVE (NEGATIVE) Urine Ketones NEGATIVE (NEGATIVE) Urine Specific [place] 1.025 (1.005-1.030) Urine pH 6.5 (4.5-8.0) Urine Protein NEGATIVE (NEGATIVE) Urine Urobilinogen 0.2 E.U./dL (0.2) Urine Nitrate NEGATIVE (NEGATIVE) Urine Leukocyte Esterase NEGATIVE (NEGATIVE) Urine Glucose (Auto)(UA) NEGATIVE (NEGATIVE) Urine Blood TRACE-INTACT (NEGATIVE) H Urine RBC 0-2 RBC/HPF (NONE SEEN) Urine WBC 0-2 WBC/HPF (0-2) Urine Squamous Epithelial Cells FEW (<=FEW) Urine Bacteria FEW (NONE SEEN) H Sodium Level 137 mmol/L (132-145) Potassium Level 4.1 mmol/L (3.6-5.2) Chloride Level 102.0 mmol/L (96-109) Carbon Dioxide Level 27.5 mmol/L (20.0-32) Glucose Level 91 mg/dL (70-110) Blood Urea Nitrogen 13 mg/dL (7-18) Creatinine 0.83 mg/dL (0.59-1.40) Calcium Level 9.3 mg/dL (8.4-10.5) Anion Gap 11.6 Estimated GFR () 91.7 (>/=60) Est GFR (CKD-EPI)(Non-Afr Jamaican) 75.8 (>/=60) BUN/Creatinine Ratio 15.0 Progress Progress Not a UTI. No blood - not convincing for renal stone either. We will obtain a CT. On CT evaluation, there are multiple anomalies of the liver; the bowel also looks peculiar. There may or may not be a small renal stone down near the bladder or UVJ. Pt is becoming more and more insistent for some morphine and discharge. The two are not necessarily compatible, morphine followed by quick discharge, and there are several abnormalities on the CT which I do not fully understand and cannot determine a proper clinical treatment for. She says this is because she will lose her ride to the other side of town soon. Regardless of what the correct treatment is, it is not to give morphine and pr omptly discharge a patient without understand her clinical condition. I have explained to patient that leaving AMA risks problems up to and including , and she elects to proceed. Very well then; she is free to make this decision and must therefore take the consequences thereof upon herself. ER DEPART Departure Time of Disposition: 22:25 Disposition: 01 HOME / SELF CARE / HOMELESS Impression: Primary Impression: Back pain Condition: Against Medical Advice (ERASED) Referrals: PCP,UNKNOWN (PCP) PRIMARY CARE PROVIDER Duration or Time Spent with Pa: 15 min NAYELI SULLIVAN MD Jun 22, 2022 20:33
[2022-06-22] MEDS ORDERED: PHENERGAN ONE ×2 (20:59→21:07)
[2022-06-22 21:15] LABS: CARBON DIOXIDE 27.5 mmol/L (20.0-32)
[2022-06-22 21:17] LABS: BILIRUBIN,URINE NEGATIVE (NEGATIVE); UROBILINOGEN,URINE 0.2 E.U./dL (0.2)
[2022-06-22] MEDS ORDERED: TYLENOL PO STA (21:25)
[2022-06-22] MEDS ORDERED: TYLENOL PO ONE (21:30)
[2022-06-22 22:11] VITALS: BP 113/75
--- NOTE | 2022-06-22 22:22 | NUR ---
PATIENT REQUESTING TO LEAVE, VOICES SHE WILL NOT HAVE A RIDE LATER. PHYSICIAN AT BEDSIDE DISCUSSING RISKS OF LEAVING AMA. PATIENT VOICES UNDERSTAING. AMA FORM SIGNED.
--- NOTE | 2022-06-22 22:34 | DIREP ---
PROCEDURE:CT ABDOMEN/PELVIS W/O CONTRAST COMPARISON:[facility], CT, CT ABD/PELVIS W/ CONTRAST, 07/04/2017, 10:46 PM. INDICATIONS:concern for R renal stone TECHNIQUE:Axial images were created through the abdomen and pelvis without intravenous contrast material. No oral contrast was administered. Sagittal and coronal reconstructions were performed from source images. FINDINGS: LUNG BASES:Normal. No visible pulmonary or pleural disease. LIVER:Elongated right hepatic lobe. Scattered hypodensities in keeping with hepatic cysts measuring up to 6.9 x 3.6 cm in the posterior right hepatic lobe, though some are too small to accurately characterize. Otherwise normal for technique. BILIARY:Normal. No visible dilatation or calcification. PANCREAS:Normal for technique. SPLEEN:Normal for technique. ADRENALS:Normal. No mass or enlargement. URINARY TRACT:There is a 4 mm calculus in the right pelvis which could represent a nonobstructive distal ureteral calculus versus phlebolith. This may have been present on the prior examination, though was punctate at the time. No hydronephrosis or contour deforming renal mass. Simple appearing cyst in the lower left kidney. AORTA/VASCULAR:Normal. No aneurysm. RETROPERITONEUM:Normal. No mass or adenopathy. BOWEL/MESENTERY:The appendix is visualized and appears normal. There is no intestinal obstruction, free fluid, free air or mesenteric inflammatory changes. Gaseous prominence of the colon ABDOMINAL WALL:Normal. No mass or hernia. PELVIC ORGANS:Normal. No visible mass. Pelvic organs appropriate for patient age. There appears to be a tampon in the vagina. BONES:Normal for age. No bony lesion or acute fracture. OTHER:Negative. CONCLUSION: 1. Nonobstructive right distal ureteral calculus versus phlebolith. No hydronephrosis. 2. Gaseous prominence of the colon which can be seen with adynamic ileus. 3. Hepatic and left renal cysts. Other incidental findings as above. Dictated by: Vasyl Pineda M.D. on 06/22/2022 at 10:21 PM
== END 2022-06-22 22:25 | disposition home or self-care (01) ==
LOC: ER 20:08
DX: M54.9 Dorsalgia, unspecified (principal); F15.10 Other stimulant abuse, uncomplicated; R30.0 Dysuria; R11.2 Nausea with vomiting, unspecified; Z87.440 Personal history of urinary (tract) infections; Z87.442 Personal history of urinary calculi; Z88.5 Allergy status to narcotic agent; Z88.8 Allergy status to other drugs, medicaments and biological substances
CPT/HCPCS: 96361; 96374; 99284; 87086; 74176; 36415; 80048; 80076; 81001; 87077; 87186; J7120; J2550 ×2; A9150

== ENCOUNTER 2023-01-29 03:46 | Observation (INO) | payer SELFPAY ==
[~2023-01-29] VITALS: Ht 170.2 cm; Wt 62.1 kg
[~2023-01-29 03:46] MED LIST changes: -LACTATED RINGERS ONE
[2023-01-29 03:56] VITALS: BP 115/80
[2023-01-29] MEDS ORDERED: LACTATED RINGERS 1,000 ML IV SCH (04:00)
--- NOTE | 2023-01-29 04:09 | ER.PDOC ---
General Chief Complaint: Requesting Medical Care Stated Complaint: ABD PAIN Time seen by MD: 04:00 Source: patient, EMS Exam Limitations: no limitations History of Present Illness Initial Comments Abdominal pain of 24 hours duration, history of meth and other substance abuse, also abdominal distention Timing/Duration: 24 hours, changing over time, intermittent Severity/Quality: severe, sharpness Radiation: no radiation Associated Symptoms: swelling/mass in abdomen Exacerbated by: nothing Relieved By: nothing Allergies: Coded Allergies: hydromorphone (Unverified Allergy, Intermediate, HALLUCINATIONS, 06/02/17) ondansetron (Verified Allergy, Mild, ITCHING, 06/11/22) ketorolac (Unverified Allergy, Unknown, HALLUCINATIONS, 06/02/17) tramadol (Verified Adverse Reaction, Intermediate, Nausea, 06/02/17) Home Meds Reported Medications Butalbit/Acetamin/Caff/Codeine (Fioricet-Cod [id number] Cap) 1 Each Capsule, 1 EACH PO PRN PRN for HEADACHE, CAPSULE 12/22/16 Acetaminophen With Codeine (TYLENOL WITH CODEINE #4 TABLET) 1 Each Tablet, 1 TAB PO Q4HR PRN for HEADACHE, #120 TAB 05/01/16 Fluoxetine Hcl (PROZAC) 40 Mg Capsule, 80 MG PO DAILY, CAPSULE 11/27/15 Promethazine Hcl (PROMETHAZINE HCL) 25 Mg Tablet, 25 MG PO Q6HR PRN for N/V, TABLET 11/11/14 Vital Signs First Vital Signs Date Time Temp Pulse Resp B/P (MAP) Pulse Ox O2 Delivery O2 Flow Rate FiO2 01/29/23 03:56 98.0 92 22 01/29/23 03:56 115/80 (92) 99 Room Air* 0 21 Last Vital Signs Date Time Temp Pulse Resp B/P (MAP) Pulse Ox O2 Delivery O2 Flow Rate FiO2 01/29/23 05:08 98.0 71 20 114/76 (89) 99 Room Air* 0 21 Past Medical History Medical History: other Surgical History: back, tubal Family History Significant Family History: no pertinent family hx Social History Smoking: non-smoker Alcohol Use: heavy Drug Use: marijuana, Meth Reviewed Nursing Reviewed: Vital Signs, Abn. Noted Constitutional: no symptoms reported, see HPI EENTM: no symptoms reported Respiratory: no symptoms reported Cardiovascular: no symptoms reported Gastrointestinal: see HPI, abdomen distended, abdominal pain Genitourinary: no symptoms reported Musculoskeletal: no symptoms reported Skin: no symptoms reported All Other Systems: Reviewed and Negative Physical Exam General Appearance: Anxious, Moderate Distress HEENT: PERRL/EOMI, Normal ENT Inspection, TMs Normal, Pharynx Normal Neck: Non-Tender, Full Range of Motion, Supple, Normal Inspection Respiratory: chest non-tender, lungs clear, normal breath sounds, no respir atory distress, no accessory muscle use Cardiovascular: Normal Peripheral Pulses, Regular Rate, Rhythm, No Gallop Gastrointestinal: No Organomegaly, No Pulsatile Mass, Absent bowel sounds, Distended, Tenderness Back: Normal Inspection, No CVA Tenderness, No Vertebral Tenderness Extremities: Normal Range of Motion, Non-Tender, Normal Inspection, No Pedal Edema, No Calf Tenderness, Normal Capillary Refill, Pelvis Stable Neurologic/Psychiatric: knobber II-XII NML as Tested, No Motor/Sensory Deficits, Alert, Normal Mood/Affect, Oriented x 3 Skin: Normal Color, Warm/Dry Results/Orders Results/Orders Vital Signs Date Time Temp Pulse Resp B/P (MAP) Pulse Ox O2 Delivery O2 Flow Rate FiO2 01/29/23 05:08 98.0 71 20 114/76 (89) 99 Room Air* 0 21 01/29/23 03:56 98.0 92 22 99 01/29/23 03:56 98.0 92 22 115/80 (92) 99 Room Air* 0 21 01/29/23 03:56 98.0 92 22 Administered Medications Medications (Trade) Dose Ordered Sig/Asad Route PRN Reason Start Time Stop Time Status Last Admin Dose Admin Fentanyl Citrate (Sublimaze) 100 mcg OT ONCE IV 01/29/23 04:30 01/29/23 04:31 DC 01/29/23 04:25 100 MCG Promethazine HCl (Phenergan) 12.5 mg STAT STAT IV 01/29/23 04:11 01/29/23 04:12 UNV 01/29/23 04:20 12.5 MG Laboratory Tests Test 01/29/23 04:00 01/29/23 04:05 White Blood Count 3.5 10^3/uL (4.5-11.0) L Red Blood Count 4.99 10^6/uL (4.00-5.20) Hemoglobin 14.7 g/dL (12.0-15.0) Hematocrit 44.8 % (36.0-46.0) Mean Corpuscular Volume 89.8 fL (78-100) Mean Corpuscular Hemoglobin 29.5 pg (26-34) Mean Corpuscular Hemoglobin Concent 32.8 g/dL (33-36.5) L Red Cell Distribution Width 14.1 % (11.5-14.5) Platelet Count 262 10^3/uL (150-400) Mean Platelet Volume 9.9 fL (7.8-11.0) Neutrophils (%) (Auto) 72.1 % (41.0-85.0) Lymphocytes (%) (Auto) 15.7 % (24.0-44.0) L Monocytes (%) (Auto) 9.3 % (5.0-12.0) Neutrophils # (Auto) 2.5 10^3/uL (1.8-7.7) Lymphocytes # (Auto) 0.54 10^3/uL1 (1.0-4.8) L Monocytes # (Auto) 0.3 10^3/uL (0.3-0.8) Absolute Immature Granulocyte (auto 0 10^3 u/L (0-2) Absolute Eosinophils (auto) 0.1 10^3/uL (0.0-0.2) Immature Granulocytes % 0.00 % (0.00-0.50) Eosinophils % 2.6 % (0.0-5.0) Basophils % 0.3 % (0.0-0.2) H Basophils # 0.0 10^3/uL (0.0-0.1) Prothrombin Time 9.9 SEC (9.7-11.6) INR 0.9 Activated Partial Thromboplast Time 23.6 SEC (22.5-33.1) Sodium Level 137 mmol/L (132-145) Potassium Level 4.1 mmol/L (3.6-5.2) Chloride Level 103.0 mmol/L (96-109) Carbon Dioxide Level 24.5 mmol/L (20.0-32) Anion Gap 13.6 Blood Urea Nitrogen 17 mg/dL (7-18) Creatinine 0.96 mg/dL (0.59-1.40) Estimated GFR () 77.1 (>/=60) Est GFR (CKD-EPI)(Non-Afr Libyan) 63.7 (>/=60) BUN/Creatinine Ratio 17.0 (10.0-20.0) Glucose Level 93 mg/dL (70-110) Lactic Acid Level 1.6 mmol/L (0.5-1.9) Calcium Level 8.8 mg/dL (8.4-10.5) Total Bilirubin 0.6 mg/dL (0.2-1.0) Aspartate Amino Transferase (AST) 22 U/L (0-35) Alanine Aminotransferase (ALT) 17 U/L (12-78) Alkaline Phosphatase 59 U/L (50-136) Ammonia 18 umol/L (11-35) Lactate Dehydrogenase 179 U/L (81-234) Total Protein 8.0 g/dL (6.4-8.2) Albumin 4.1 g/dL (3.4-5.0) Globulin 3.9 Albumin/Globulin Ratio 1.051 Amylase Level 72 U/L (25-115) Lipase 41 U/L (16-77) Serum HCG, Qualitative NEGATIVE (NEGATIVE) Urine Collection Type CATH Urine Color YELLOW Urine Appearance TURBID Urine Bilirubin NEGATIVE (NEGATIVE) Urine Ketones NEGATIVE (NEGATIVE) Urine Specific [place] >=1.030 (1.005-1.030) Urine pH 5.5 (4.5-8.0) Urine Protein TRACE (NEGATIVE) Urine Urobilinogen 0.2 E.U./dL (0.2) Urine Nitrate NEGATIVE (NEGATIVE) Urine Leukocyte Esterase NEGATIVE (NEGATIVE) Urine Glucose (Auto)(UA) NEGATIVE (NEGATIVE) Urine Blood TRACE-LYSED (NEGATIVE) H Urine RBC 0-2 RBC/HPF (NONE SEEN) Urine WBC 0-2 WBC/HPF (0-2) Urine Squamous Epithelial Cells MODERATE (<=FEW) Urine Calcium Oxalate Crystals FEW (NONE SEEN) A Urine Bacteria FEW (NONE SEEN) H Urine Mucus MODERATE (NONE SEEN) Urine Opiates Screen NEGATIVE (c/o300ng/mL) Urine Methadone Screen NEGATIVE (c/o300ng/mL) Urine Barbiturates Screen NEGATIVE (c/o200ng/mL) Urine Phencyclidine Screen NEGATIVE (c/o 25ng/mL) Ur Amphetamine/Methamphetamine PRESUMPTIVE POSITIVE Urine MDMA Screen (Ecstasy) PRESUMPTIVE POSITIVE Urine Benzodiazepines Screen NEGATIVE (c/o200ng/mL) Urine Cocaine Metabolite Screen NEGATIVE (c/o300ng/mL) Ur Tetrahydrocannabinol (THC) Scrn NEGATIVE (c/o 50ng/mL) Progress Progress CT abdomen/pelvis:Diffusely prominent small and large bowel loops. Large stool and gas burden in the large bowel. Findings are similar to the prior study from 06/22/2022, but increased from the prior study . Findings may suggest adynamic ileus in the appropriate clinical setting. Follow-up colonoscopy on a nonacute basis may be beneficial to exclude other possibilities or distal obstructing colonic lesion. Evaluation limited without oral contrast. Other chronic or incidental findings as above. WBC 3.5, chemistry normal, lipase normal, urinalysis not consistent with UTI, UDS positive for MDMA and methamphetamine. I consulted with Dr. Palmer who will follow up with the patient on the floor. Patient's previous records reviewed ER DEPART Departure Time of Disposition: 06:00 Disposition: 09 ADMITTED INPATIENT Impression: Primary Impression: Paralytic ileus Additional Impression: Substance abuse Condition: Improved Referrals: PCP,UNKNOWN (PCP) PRIMARY CARE PROVIDER Comments Admitted to Dr. Spencer Haley to consult Duration or Time Spent with Pa: 60 min Problem Qualifiers JULIETTE NIEVES MD January 29, 2023 04:09 REESE SORIA MD January 29, 2023 06:43
[2023-01-29] MEDS ORDERED: LACTATED RINGERS 1,000 ML ONE (04:11)
[2023-01-29] MEDS ORDERED: PHENERGAN IV STA (04:11)
[2023-01-29] MEDS ORDERED: ZOFRAN IV STA (04:11)
[2023-01-29] MEDS ORDERED: SUBLIMAZE ONE (04:13)
[2023-01-29 04:19] LABS: BASOPHIL % 0.3 % (0.0-0.2); EOSINOPHIL # 0.1 10^3/uL (0.0-0.2); EOSINOPHIL % 2.6 % (0.0-5.0); LYMPHOCYTES # 0.54 10^3/uL1 (1.0-4.8); LYMPHOCYTES % 15.7 % (24.0-44.0); MEAN CORP HGB 29.5 pg (26-34); MONOCYTES # 0.3 10^3/uL (0.3-0.8); MONOCYTES % 9.3 % (5.0-12.0); NEUTROPHIL # 2.5 10^3/uL (1.8-7.7); NEUTROPHILS % 72.1 % (41.0-85.0); PLATELET COUNT 262 10^3/uL (150-400); RED CELL DISTRIBUTION WIDTH 14.1 % (11.5-14.5)
[2023-01-29] MEDS ORDERED: SUBLIMAZE IV ONE (04:30)
[2023-01-29 04:36] LABS: CARBON DIOXIDE 24.5 mmol/L (20.0-32)
[2023-01-29 04:45] LABS: BILIRUBIN,URINE NEGATIVE (NEGATIVE); UROBILINOGEN,URINE 0.2 E.U./dL (0.2)
--- NOTE | 2023-01-29 05:05 | DIREP ---
PROCEDURE:CHEST 1 VIEW COMPARISON:[facility], CT, CT ABD/PELVIS W/ CONTRAST, 01/29/2023, 04:35 AM. [facility], CR, XRAY CHEST SINGLE VW, 12/06/2021, 05:04 PM. [facility], CR, XRAY CHEST SINGLE VW, 09/07/2021, 11:15 PM. INDICATIONS:abd pain, possible free air FINDINGS: LUNGS/PLEURA:No significant pulmonary parenchymal abnormalities. No effusions. No pneumothorax. VASCULATURE:Normal. Unremarkable pulmonary vasculature. CARDIAC:Normal. No cardiac silhouette abnormality or cardiomegaly. MEDIASTINUM:Normal. No visible mass or adenopathy. BONES:Normal. No fracture or visible bony lesion. OTHER:Distended bowel loops under the left diaphragm. CONCLUSION:No acute findings in the chest. Distended bowel loops the left diaphragm. Dictated by: Alexey Mack MD on 01/29/2023 at 05:01 AM
[2023-01-29 05:08] VITALS: BP 114/76
--- NOTE | 2023-01-29 05:51 | DIREP ---
PROCEDURE:CT ABDOMEN/PELVIS W/ CONTRAST COMPARISON:[facility], CT, CT ABD/PELVIS W/O, 06/22/2022, 09:42 PM. [facility], CT, CT ABD/PELVIS W/ CONTRAST, 07/04/2017, 10:46 PM. INDICATIONS:acute abd TECHNIQUE:Axial images were created through the abdomen and pelvis with non-ionic intravenous contrast material. No oral contrast was administered. Sagittal and coronal reconstructions were performed from source images. FINDINGS: LUNG BASES:Normal. No visible pulmonary or pleural disease. LIVER:Multiple cysts in the liver. BILIARY:Normal. No visible dilatation or calcification. PANCREAS:Normal. No lesion, fluid collection, ductal dilatation, or atrophy. SPLEEN:Normal. No enlargement or focal lesion. ADRENALS:Normal. No mass or enlargement. URINARY TRACT:Normal. No focal lesions or hydronephrosis. AORTA/VASCULAR:Normal. No aneurysm. RETROPERITONEUM:Normal. No mass or adenopathy. BOWEL/MESENTERY:Diffusely prominent bowel loops including large and small bowel. Large stool and gas burden in the large bowel. Appendix is gas-filled and borderline prominent probably secondary to dilated large bowel loops. Evaluation is limited due to lack of oral contrast and lack of intra-abdominal fat. ABDOMINAL WALL:Normal. No mass or hernia. PELVIC ORGANS:A Marcos catheter in the bladder. BONES:Normal for age. No bony lesion or acute fracture. OTHER:Negative. CONCLUSION:Diffusely prominent small and large bowel loops. Large stool and gas burden in the large bowel. Findings are similar to the prior study from 06/22/2022, but increased from the prior study . Findings may suggest adynamic ileus in the appropriate clinical setting. Follow-up colonoscopy on a nonacute basis may be beneficial to exclude other possibilities or distal obstructing colonic lesion. Evaluation limited without oral contrast. Other chronic or incidental findings as above. Dictated by: Alexey Mack MD on 01/29/2023 at 05:32 AM
[2023-01-29 06:30] VITALS: BP 103/71
[2023-01-29] MEDS ORDERED: DIATRIZOATE SODIUM PO STA (06:43)
[2023-01-29] MEDS ORDERED: DIATRIZOATE MEGLUMINE PO STA (06:43)
[2023-01-29] MEDS ORDERED: DULCOLAX RC STA (06:43)
--- NOTE | 2023-01-29 06:44 | PRM.CONS ---
Consultation Reason for Consult: Reason for Consultation: admission History of Present Illness History of Patient Comments Patient is admitted at the end of the shift, I am unable to see the patient. Patient is being admitted with an adynamic ileus. Dr. Palmer with general surgery has been contacted by the emergency room provider and will be seeing the patient later on today. Requesting Dulcolax suppository and a Gastrografin follow-through VTE VTE Risk Total Score: 2 VTE Risk Score VTE Risk: Score 0-1 = Low Risk (Aggressive mobilization; early ambulation; no VTE prophylaxis required) Score 2: Moderate Risk (Intermittent/Pneumatic Compression Device OR Lovenox/Heparin/Coumadin) Score 3-4: High Risk (Intermittent/Pneumatic Compression Device AND Lovenox/Heparin/Coumadin) Score > or =5: Highest Risk (Intermittent/Pneumatic Compression Device AND Lovenox/Heparin/Coumadin) VTE VTE Present on Admission: No Currently receiving anticoagul: No VTE Risk Total Score: 2 VTE VTE Risk Total Score: 2 RAMILA SCANLON MD January 29, 2023 06:44
[2023-01-29] MEDS ORDERED: NS 1000ML 1,000 ML IV SCH (07:00)
[2023-01-29] MEDS ORDERED: PHENERGAN IV PRN (07:00)
[2023-01-29 07:30] VITALS: BP 103/60
[2023-01-29] MEDS ORDERED: DULCOLAX RC SCH (09:00)
[2023-01-29 09:02] VITALS: BP 93/56
--- NOTE | 2023-01-29 12:33 | PCM.HP ---
HISTORY & PHYSICAL HISTORY & PHYSICAL Went to see the patient found that the patient signed AGAINST MEDICAL ADVICE.Please refer to admission note from Dr. Merrill for details. RADHA WEI MD January 29, 2023 12:33
--- NOTE | 2023-01-29 12:34 | PRM.DC ---
DISCHARGE SUMMARY Y Patient left AGAINST MEDICAL ADVICE. For details of this hospital admission please refer to admission note from Dr. Merrill. RADHA WEI MD January 29, 2023 12:34
== END 2023-01-29 09:05 | disposition left against medical advice (07) ==
LOC: ER 03:46 → MS 06:43
PROVIDERS: ADMIT Internal Medicine; ATTEND Internal Medicine
DX: K56.0 Paralytic ileus (principal); F19.90 Other psychoactive substance use, unspecified, uncomplicated; F15.10 Other stimulant abuse, uncomplicated; Z53.29 Procedure and treatment not carried out because of patient's decision for other reasons; Z79.899 Other long term (current) drug therapy
CPT/HCPCS: 36415; 71045; 74177; 80053; 80307; 81001; 82140; 82150; 83605; 83615; 83690; 84703; 85025; 85610; 85730; 96374; 96375; 99285; G0378; J2550; J3010; J7120; Q9965

== ENCOUNTER 2023-09-11 23:28 | Emergency (ER) | payer OTHER ==
[~2023-09-11] VITALS: Ht 172.7 cm; Wt 60.3 kg
[~2023-09-11 23:28] MED LIST changes: -PROC10TA2 PO; +PROC10TA6 PO; -VENL150C3 PO; +VENL150C4 PO
[2023-09-11 23:46] VITALS: BP 146/107; PULSE 137; RESP 18; O2SAT 97
== END 2023-09-12 00:23 | disposition left against medical advice (07) ==
LOC: ER 23:28
DX: F15.959 Other stimulant use, unspecified with stimulant-induced psychotic disorder, unspecified (principal); Z98.51 Tubal ligation status; Z88.5 Allergy status to narcotic agent
CPT/HCPCS: 99284

== ENCOUNTER 2023-09-12 04:23 | Emergency (ER) | payer OTHER ==
[~2023-09-12] VITALS: Ht 172.7 cm; Wt 59.0 kg
[2023-09-12 04:23] VITALS: BP 133/102; PULSE 110; RESP 24; TEMP 97.8; O2SAT 97
[2023-09-12] MEDS ORDERED: NS 1000ML 1,000 ML IV STA (04:37)
[2023-09-12] MEDS ORDERED: NS 1000ML 1,000 ML ONE (04:58)
[2023-09-12 05:20] VITALS: BP 147/97; PULSE 98; RESP 20; O2SAT 98
[2023-09-12 05:22] LABS: BASOPHIL % 0.7 % (0.0-0.2); HEMATOCRIT(ML) 40.3 % (36.0-46.0); HEMOGLOBIN 13.8 g/dL (12.0-15.0); LYMPHOCYTES # 0.66 10^3/uL1 (1.0-4.8); LYMPHOCYTES % 22.3 % (24.0-44.0); MEAN CORP HGB 30.3 pg (26-34); MEAN CORP HGB CONCENTRATION 34.2 g/dL (33-36.5); MEAN CORP VOLUME 88.6 fL (78-100); MONOCYTES # 1.1 10^3/uL (0.3-0.8); MONOCYTES % 37.8 % (5.0-12.0); NEUTROPHIL # 1.2 10^3/uL (1.8-7.7); NEUTROPHILS % 39.2 % (41.0-85.0); PLATELET COUNT 288 10^3/uL (150-400); RED BLOOD CELL 4.55 10^6/uL (4.00-5.20); RED CELL DISTRIBUTION WIDTH 12.7 % (11.5-14.5)
[2023-09-12 05:26] LABS: +ADD MANUAL DIFF(NO CHRG) NO
[2023-09-12 05:34] LABS: ALBUMIN(ML) 3.7 g/dL (3.4-5.0); ALBUMIN/GLOBULIN RATIO 1.156; CALCIUM 8.7 mg/dL (8.4-10.5); CARBON DIOXIDE 24.4 mmol/L (20.0-32); EST GFR, NON-AA 60.8 (>/=60); POTASSIUM 4.4 mmol/L (3.6-5.2)
[2023-09-12] MEDS ORDERED: TRIPLE ANTIBIOTIC OINTMENT TP ONE (05:50)
[2023-09-12] MEDS ORDERED: WATER ONE (05:51)
[2023-09-12 06:03] LABS: BILIRUBIN,URINE NEGATIVE (NEGATIVE); LEUKOCYTE ESTERASE ,URINE NEGATIVE (NEGATIVE); NITRATE,URINE NEGATIVE (NEGATIVE); UROBILINOGEN,URINE 0.2 E.U./dL (0.2)
[2023-09-12 06:09] LABS: APPEARANCE,URINE CLEAR; UA COLOR YELLOW; UAMPH METHAMP(SCRN) NEGATIVE (co1000ng/mL); UR METHADONE SCRN NEGATIVE (c/o300ng/mL); UR OPIATE SCRN NEGATIVE (c/o300ng/mL); UR PHENCYCLIDINE (PCP) SCRN NEGATIVE (c/o 25ng/mL); UR TETRAHYDROCANNABINOL SCRN NEGATIVE (c/o 50ng/mL)
[2023-09-12 06:10] LABS: UR MDMA (ECSTASY) SCRN PRESUMPTIVE POSITIVE (c/o300ng/mL)
[2023-09-12] MEDS ORDERED: TYLENOL PO STA (06:14)
[2023-09-12] MEDS ORDERED: TYLENOL PO ONE (06:15)
[2023-09-12 06:20] VITALS: BP 131/84; PULSE 101; RESP 20; O2SAT 97
== END 2023-09-12 06:22 ==
LOC: ER 04:23
DX: S80.812A Abrasion, left lower leg, initial encounter (principal); S80.811A Abrasion, right lower leg, initial encounter; E86.0 Dehydration; F19.10 Other psychoactive substance abuse, uncomplicated; Z88.5 Allergy status to narcotic agent; Z65.3 Problems related to other legal circumstances; X58.XXXA Exposure to other specified factors, initial encounter; Y93.89 Activity, other specified; Y92.89 Other specified places as the place of occurrence of the external cause; Y99.8 Other external cause status
CPT/HCPCS: 96360; 99284; 80053; 85025; 36415; 83605; 80307; 81001; 80359; 84703; 93005; J7030; A4217; A9150